=== PATIENT | female | born 1995 | race American Indian/Alaskan Native ===

== ENCOUNTER 2019-05-03 19:20 | Observation (INO) | payer MEDICAID ==
[2019-05-03] MEDS ORDERED: LACTATED RINGERS 1,000 ML IV ONE (20:42)
[2019-05-03 22:17] LABS: Hematocrit 36.4 % (30.3-42.9); Hemoglobin 12.7 gm/dl (10.1-14.3); Mean Corpuscular HGB Conc 35 % (30-34); Mean Corpuscular Volume 93 fl (79-97); Platelet Count 202 K/mm3 (140-440); Red Blood Count 3.93 M/mm3 (3.65-5.03); Red Cell Distribution Width 13.4 % (13.2-15.2)
[2019-05-03 23:52] LABS: Bacteria,Urine 1+ /HPF (Negative); Bilirubin,Urine NEG (Negative); Blood,Urine NEG (Negative); Color,Urine Yellow (Yellow); Mucus,Urine FEW /HPF; Urobilinogen,Urine < 2.0 mg/dL (<2.0)
[2019-05-04] MEDS ORDERED: LOPERAMIDE 2 MG CAP PO ONE
[2019-05-04] MEDS ORDERED: LACTATED RINGERS 1,000 ML ONE (01:07)
[2019-05-04] MEDS ORDERED: cefTRIAXone/NS 1 GM/50 ML IVPB IV ONE (01:08)
[2019-05-04 01:26] VITALS: BP 115/69
[2019-05-04] MEDS ORDERED: cefTRIAXone/NS 1 GM/50 ML 1 GM/50 ML BAG IV SCH (10:00)
== END 2019-05-04 02:33 | disposition home or self-care (01) ==
LOC: TRG 19:20 → LD 19:21 → TRG 19:22 → LD 20:28 → TRG 23:30
PROVIDERS: ADMIT Obstetrics & Gynecology; ATTEND Obstetrics & Gynecology
DX: O26.893 Other specified pregnancy related conditions, third trimester (principal); R10.9 Unspecified abdominal pain; R09.89 Other specified symptoms and signs involving the circulatory and respiratory systems; Z3A.33 33 weeks gestation of pregnancy
CPT/HCPCS: 36415; 81001; 85027; 87086; 87400; 96365; G0378; J0696; J7120; 96360; 96361

== ENCOUNTER 2019-06-22 17:59 | Outpatient (CLI) | payer MEDICAID ==
[2019-06-22 18:19] VITALS: BP 119/83
== END 2019-06-22 19:25 | disposition home or self-care (01) ==
LOC: TRG 17:59
PROVIDERS: ATTEND Obstetrics & Gynecology
DX: O36.8130 Decreased fetal movements, third trimester, not applicable or unspecified (principal); Z3A.40 40 weeks gestation of pregnancy
CPT/HCPCS: 59025